=== PATIENT | female | born 1955 | race Caucasian/White ===

== ENCOUNTER 2016-07-02 13:25 | Emergency (ER) | payer MEDICARE ==
[~2016-07-02] VITALS: Ht 162.6 cm; Wt 50.0 kg
[~2016-07-02 13:25] MED LIST: BACT800T5 PO; IBUP-232 PO
[2016-07-02 13:44] VITALS: BP 103/73; PULSE 99; RESP 16; TEMP 98.5; O2SAT 98
--- NOTE | 2016-07-02 14:10 | PD ---
HPI Chief Complaint: leg injury Time Seen by Provider: 13:54 Travel History International Travel<30 days: No Contact w/Intl Traveler<30days: No Traveled to known affect area: No History of Present Illness HPI This patient complains of right knee pain. Approximately 12 hours ago during the middle of night she tripped and fell and landed on her right knee. Complains of right knee pain. She can ambulate but it's worse with ambulating. She has chronic difficulty with ambulating and has a rolling walker at home as well as a cane. 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) Endocrine: No Gastrointestinal Disorders: Yes (STATES HAS DIARRHEA SOMETIMES, NOT OFTEN) GERD: No Glaucoma: No Genitourinary: No Headaches: No Hepatitis: No Hiatal Hernia: No Hypertension: Yes (OCCAS.ASSOC WITH PAIN) Immune Disorder: No Implanted Vascular Access Dvce: Yes Kidney Stones: No Musculoskeletal: Yes Neurologic: No Psychiatric: No Reproductive: No Respiratory: No Immunizations Current: No Migraines: No Myocardial Infarction: No Renal Failure: No Seizures: No Sleep Apnea: No Thyroid Disease: No Ulcer: No Menopausal: Yes : 4 Para: 3 Miscarriage: 1 : 0 Ectopic : Yes Tubal Ligation: Yes Past Surgical History Abdominal Surgery: No AICD: No Appendectomy: No Arteriovenous Shunt: No Body Medical Devices: RIGHT HIP Cardiac Surgery: No Section: Yes Cholecystectomy: Yes (2008) Ear Surgery: Yes Endocrine Surgery: No Eye Surgery: No Genitourinary Surgery: No Gynecologic Surgery: Yes (C-SECT. X3, HYSTERECTOMY) Hysterectomy: Yes Insulin Pump: No Joint Replacement: Yes (R HIP) Neurologic Surgery: Yes (C5-6 REMOVED AND FUSED WITH NEW BONE) Pacemaker: No Thoracic Surgery: No Tonsillectomy: Yes (AND ADENOIDS) Other Surgery: Yes (NECK) Social History Alcohol Use: Yes (DAILY) Tobacco Use: Yes Substance Use: No Allergies-Medications (Allergen,Severity, Reaction): Coded Allergies: No Known Allergies (Verified , 07/02/16) Reported Meds & Prescriptions Reported Meds & Active Scripts Active No Active Prescriptions or Reported Medications Review of Systems General / Constitutional: No: Fever HENT: No: Headaches Cardiovascular: No: Chest Pain or Discomfort Physical Exam Narrative SKIN: Inspection shows no rash or ulcers. Palpation shows no induration or nodules. Psych: Normal mood and affect. Normal insight and judgment. Right leg: No erythema or bruising or open wound or specific bony tenderness. Data Data Last Documented VS Vital Signs Date Time Temp Pulse Resp B/P Pulse Ox O2 Delivery O2 Flow Rate FiO2 07/02/16 15:39 81 16 139/81 98 Room Air 07/02/16 13:44 98.5 Orders Knee, Complete (4vws) (07/02/16 ) MDM Medical Decision Making Medical Screen Exam Complete: Yes Emergency Medical Condition: Yes Medical Record Reviewed: Yes Differential Diagnosis Fracture, dislocation of patella, contusion Narrative Course I have reviewed the patient's electronic medical record. I reviewed her right knee x-rays which show no fracture or dislocation. Also visible is her hardware all the way from artificial hip down to distal femur and it looks well approximated Supportive care discussed and I expect her to get back to her normal baseline. Discussed ice and elevation and she has a walker to keep weight off it for a few days Diagnosis Primary Impression: Contusion of knee, left Additional Instructions: The patient was advised to follow up with their physician and return if they worsen. Med/Other Pt SpecificInfo: Other Scripts No Active Prescriptions or Reported Meds Disposition: 01 DISCHARGE HOME Condition: Stable Matthew Lemus MD Jul 02, 2016 14:10
[2016-07-02 15:39] VITALS: BP 139/81; PULSE 81; RESP 16; O2SAT 98
--- NOTE | 2016-07-02 16:00 | RADHPO ---
EXAM DATE/TIME: 07/02/2016 15:22 [facility] COMPARISON: KNEE RIGHT COMPLETE (4VWS), December 05, 2015, 14:59. INDICATIONS : Fell out of bed, right knee pain MEDICAL HISTORY : None. SURGICAL HISTORY : right hip, right femur ENCOUNTER: Initial ACUITY: 1 day PAIN SCORE: 10/10 LOCATION: Right knee FINDINGS: There is sideplate and screw fixation of the distal femur. Postoperative right hip replacement. Bones are osteopenic. No acute fracture identified. Findings similar to November 2015 CONCLUSION: 1. Postoperative changes of fixation of the right femur. No acute bony abnormalities. Blake Greenwood MD on July 02, 2016 at 15:57 Board Certified Radiologist. This report was verified electronically.
== END 2016-07-02 16:18 | disposition home or self-care (01) ==
LOC: PHED 13:25
DX: S80.01XA Contusion of right knee, initial encounter (principal); I10 Essential (primary) hypertension; Z72.0 Tobacco use; W18.09XA Striking against other object with subsequent fall, initial encounter; Y99.8 Other external cause status
CPT/HCPCS: 73564; 99283

== ENCOUNTER 2016-07-09 11:30 | Emergency (ER) | payer MEDICARE ==
[~2016-07-09] VITALS: Ht 162.6 cm; Wt 50.0 kg
[2016-07-09 11:43] VITALS: BP 109/80; PULSE 93; RESP 16; TEMP 98.6; O2SAT 99
--- NOTE | 2016-07-09 13:32 | RADHPO ---
EXAM DATE/TIME: 07/09/2016 12:42 [facility] COMPARISON: CT BRAIN W/O CONTRAST, September 06, 2015, 15:37. INDICATIONS : Fall from bed today. RADIATION DOSE: 56.86 CTDIvol (mGy) MEDICAL HISTORY : Hypertension. SURGICAL HISTORY : Fusion, cervical. Tonsillectomy.ear surgery ENCOUNTER: Initial ACUITY: 1 day PAIN SCALE: 3/10 LOCATION: Bilateral head TECHNIQUE: Multiple contiguous axial images were obtained of the head. Using automated exposure control and adj ustment of the mA and/or kV according to patient size, radiation dose was kept as low as reasonably a chievable to obtain optimal diagnostic quality images. FINDINGS: CEREBRUM: The ventricles are normal for age. No evidence of midline shift, mass lesion, hemorrhage or acute in farction. No extra-axial fluid collections are seen. POSTERIOR FOSSA: The cerebellum and brainstem are intact. The 4th ventricle is midline. The cerebellopontine angle i s unremarkable. EXTRACRANIAL: The visualized portion of the orbits is intact. SKULL: The calvaria is intact. No evidence of skull fracture. CONCLUSION: No acute intracranial findings. Parminder Cotto MD on July 09, 2016 at 13:30 Board Certified Radiologist. This report was verified electronically.
--- NOTE | 2016-07-09 13:36 | RADHPO ---
EXAM DATE/TIME: 07/09/2016 12:42 [facility] COMPARISON: No previous studies available for comparison. INDICATIONS : Fall from bed today. RADIATION DOSE: 24.65 CTDIvol (mGy) MEDICAL HISTORY : Hypertension. SURGICAL HISTORY : Fusion, cervical. Tonsillectomy.Hysterectomy. ENCOUNTER: Initial ACUITY: 1 day PAIN SCALE: 4/10 LOCATION: Bilateral neck TECHNIQUE: Volumetric scanning of the cervical spine was performed. Multiplanar reconstructions in the sagittal, coronal and oblique axial planes were performed. Using automated exposure control and adjustment o f the mA and/or kV according to patient size, radiation dose was kept as low as reasonably achievable to obtain optimal diagnostic quality images. FINDINGS: VERTEBRAE: Anterior fusion hardware C4 to C7. No evidence of fracture. Osseous bridging is seen between the C4 a nd C5 vertebral bodies as well as between the C5 and C6 and C6 and C7 vertebral bodies. ALIGNMENT: No evidence of subluxation. C2-C3: No evidence of focal disc protrusion. Central canal normal diameter. Neural foraminal diameters withi n normal limits. C3-C4: Broad-based discussed you by complex right-sided facet arthrosis. Central canal diameter within henry l limits. Mild right neural foraminal narrowing. C4-C5: Post surgical level. No evidence of focal disc protrusion. Central canal normal diameter. Neural fora nell diameters within normal limits. C5-C6: Post surgical level. No evidence of focal disc protrusion. Central canal normal diameter. Neural fora nell diameters within normal limits. C6-C7: Post surgical level. No evidence of focal disc protrusion. Central canal normal diameter. Mild left n eural foraminal narrowing. C7-T1: The bony spinal canal is normal in size. No evidence of disc bulge or herniation. The neural forami na are bilaterally patent. CONCLUSION: No evidence of fracture. Post surgical findings. Degenerative findings. Parminder Cotto MD on July 09, 2016 at 13:31 Board Certified Radiologist. This report was verified electronically.
--- NOTE | 2016-07-09 13:47 | RADHPO ---
EXAM DATE/TIME: 07/09/2016 12:57 [facility] COMPARISON: No previous studies available for comparison. INDICATIONS : Fall. Right hip pain. MEDICAL HISTORY : None. SURGICAL HISTORY : None. ORIF ENCOUNTER: Initial ACUITY: 1 day PAIN SCORE: 8/10 LOCATION: Right pelvis FINDINGS: 3 views of the pelvis and right hip. Bilateral hip prostheses in place. Alignment within normal limit s. Fracture deformity in the region of the greater trochanter shows evidence of advanced bone bridgin g. No evidence of acute fracture. CONCLUSION: 1. Bilateral hip prostheses. 2. Deformity proximal right femur indicating old fracture. 3. No evidence of acute fracture. Parminder Cotto MD on July 09, 2016 at 13:43 Board Certified Radiologist. This report was verified electronically.
--- NOTE | 2016-07-09 13:49 | RADHPO ---
EXAM DATE/TIME: 07/09/2016 13:02 [facility] COMPARISON: No previous studies available for comparison. INDICATIONS : Fall. MEDICAL HISTORY : None. SURGICAL HISTORY : None. ORIF ENCOUNTER: Initial ACUITY: 1 day PAIN SCORE: 6/10 LOCATION: Right lateral FINDINGS: 2 views of the right femur. Lateral internal fixation plate and multiple transfixing screws in place in the femoral shaft and distal femur. Hardware intact. No evidence of acute fracture. Bone callus in dicating old distal femoral shaft fracture noted. CONCLUSION: Evidence of old distal femoral shaft fracture status post ORIF. No acute fracture identified. Parminder Cotto MD on July 09, 2016 at 13:46 Board Certified Radiologist. This report was verified electronically.
--- NOTE | 2016-07-09 13:50 | RADHPO ---
EXAM DATE/TIME: 07/09/2016 13:03 [facility] COMPARISON: KNEE RIGHT COMPLETE (4VWS), July 02, 2016, 15:22. INDICATIONS : Fall. Right knee pain. MEDICAL HISTORY : None. SURGICAL HISTORY : None. ENCOUNTER: Initial ACUITY: 1 day PAIN SCORE: 7/10 LOCATION: Right lateral FINDINGS: 4 views right knee. Distal femoral hardware again seen and unchanged. Evidence of old distal femoral shaft fracture. No acute fracture identified. No evidence of joint effusion. No evidence of joint lee rowing. CONCLUSION: Old distal femoral shaft fracture status post ORIF. No evidence of acute fracture. Parminder Cotto MD on July 09, 2016 at 13:47 Board Certified Radiologist. This report was verified electronically.
--- NOTE | 2016-07-09 13:52 | RADHPO ---
EXAM DATE/TIME: 07/09/2016 13:08 [facility] COMPARISON: No previous studies available for comparison. INDICATIONS : Fall. Right lower leg pain. MEDICAL HISTORY : None. SURGICAL HISTORY : None. ENCOUNTER: Initial ACUITY: 1 day PAIN SCORE: 5/10 LOCATION: Right lateral FINDINGS: 2 views right tibia and fibula. Distal femoral hardware, distal tibial hardware, and distal fibula drake rdware are identified. Hardware intact. No evidence of acute fracture. CONCLUSION: Evidence of old distal femur, tibia, and fibula fractures status post ORIF. No acute fracture identif ied. Parminder Cotto MD on July 09, 2016 at 13:49 Board Certified Radiologist. This report was verified electronically.
--- NOTE | 2016-07-09 14:08 | PD ---
HPI Chief Complaint: Fall Time Seen by Provider: 11:50 Travel History International Travel<30 days: No Contact w/Intl Traveler<30days: No Traveled to known affect area: No History of Present Illness HPI Patient is a 60-year-old female who comes in after a fall today. She says in bed when her cat jumped on her and she fell out of the bed. She says she landed on her right leg. She has history of surgeries to that leg do to old fractures. She says she did hit the back of her head. She denies any loss of consciousness. She denies any dizziness, nausea, vomiting. She was here earlier in the week for a fall as well. Per her son, she has been unwilling to get out of head recently due to pain in her knee for previous fall. She does see Dr. Briceno, but has not been to him in a while due to an issue with payment. Her son says he has already taking care of this issue. She has not had any fever or chills. She denies any chest pain or shortness of breath. 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) Endocrine: No Gastrointestinal Disorders: Yes (STATES HAS DIARRHEA SOMETIMES, NOT OFTEN) GERD: No Glaucoma: No Genitourinary: No Headaches: No Hepatitis: No Hiatal Hernia: No Hypertension: Yes (OCCAS.ASSOC WITH PAIN) Immune Disorder: No Implanted Vascular Access Dvce: Yes Kidney Stones: No Medical other: Yes (H/O SPINAL MENINGITITIS X3, NEUROPATHY) Musculoskeletal: Yes Neurologic: No Psychiatric: No Reproductive: No Respiratory: No Immunizations Current: Yes Migraines: No Myocardial Infarction: No Renal Failure: No Seizures: No Sleep Apnea: No Thyroid Disease: No Ulcer: No Menopausal: Yes : 4 Para: 3 Miscarriage: 1 : 0 Ectopic : Yes Tubal Ligation: Yes Past Surgical History Abdominal Surgery: No AICD: No Appendectomy: No Arteriovenous Shunt: No Body Medical Devices: RIGHT HIP Cardiac Surgery: No Section: Yes Cholecystectomy: Yes (2008) Ear Surgery: Yes Endocrine Surgery: No Eye Surgery: No Genitourinary Surgery: No Gynecologic Surgery: Yes (C-SECT. X3, HYSTERECTOMY) Hysterectomy: Yes Insulin Pump: No Joint Replacement: Yes (R HIP) Neurologic Surgery: Yes (C5-6 REMOVED AND FUSED WITH NEW BONE) Pacemaker: No Thoracic Surgery: No Tonsillectomy: Yes (AND ADENOIDS) Other Surgery: Yes (NECK) Social History Alcohol Use: Yes (DAILY) Tobacco Use: Yes Substance Use: No Allergies-Medications (Allergen,Severity, Reaction): Coded Allergies: No Known Allergies (Verified , 07/09/16) Reported Meds & Prescriptions Reported Meds & Active Scripts Active No Active Prescriptions or Reported Medications Review of Systems Except as stated in HPI: all other systems reviewed are Neg General / Constitutional: No: Fever, Chills Eyes: No: Blurred Vision HENT: No: Headaches Cardiovascular: No: Chest Pain or Discomfort Respiratory: No: Shortness of Breath Gastrointestinal: No: Nausea, Vomiting Musculoskeletal: Positive: Pain Skin: No Rash, No Change in Pigmentation Neurologic: No: Weakness, Dizziness Physical Exam Narrative GENERAL: Awake and alert, in no acute distress. SKIN: Warm and dry. HEAD: Atraumatic. Normocephalic. EYES: Pupils equal and round. No scleral icterus. ENT: Mucous membranes pink and moist. NECK: Trachea midline. No JVD. CARDIOVASCULAR: Regular rate and rhythm. No murmur appreciated. RESPIRATORY: No accessory muscle use. Clear to auscultation. Breath sounds equal bilaterally. MUSCULOSKELETAL: No obvious deformities. No clubbing. No cyanosis. No edema. Flexion of right knee limited due to pain. Pedal pulses intact. NEUROLOGICAL: Awake and alert. No obvious cranial nerve deficits. Motor grossly within normal limits. Normal speech. PSYCHIATRIC: Appropriate mood and affect; insight and judgment normal. Data Data Last Documented VS Vital Signs Date Time Temp Pulse Resp B/P Pulse Ox O2 Delivery O2 Flow Rate FiO2 07/09/16 11:50 16 07/09/16 11:43 98.6 93 109/80 99 Orders Hip, Uni(Ap&Lat) W Ap Pelvis (07/09/16 ) Femur (Ap & Lat/2vws) (07/09/16 ) Knee, Complete (4vws) (07/09/16 ) Tibia/Fibula (Ap/Lat) (07/09/16 ) Ct Brain W/O Iv Contrast(Rout) (07/09/16 ) Ct Cerv Spine W/O Contrast (07/09/16 ) MDM Medical Decision Making Medical Screen Exam Complete: Yes Emergency Medical Condition: Yes Medical Record Reviewed: Yes Differential Diagnosis Hip fracture versus knee fracture versus ankle fracture versus muscle sprain versus deconditioning Narrative Course Patient is a 60-year-old female comes in after she fell out of bed. Exam shows pain to the right leg. CT of the head and C-spine performed show no acute abnormalities. X-ray of the pelvis, right hip, right femur, right knee, right tib-fib show no acute findings. I spoke with her and her son at length and explained she needs to follow-up with Dr. Briceno. I explained that they should see him about possible physical therapy to help her become stronger and better able to walk on her own. I encouraged the patient to communicate with her son when she needs something from him. The son is very willing to help his mother and will set up appointments with Dr. Briceno. Patient will be discharged home. Advised to return to the ED as needed for any worsening symptoms. Diagnosis Primary Impression: Fall Qualified Code: W19.XXXA - Fall, initial encounter Additional Impression: Leg pain Qualified Code: M79.604 - Pain of right lower extremity Patient Instructions: General Instructions, Leg Sprain (ED) Additional Instructions: Follow up with Dr. Briceno. Return to the ED as needed for any worsening symptoms. Take Tylenol or Ibuprofen as needed for pain. Scripts No Active Prescriptions or Reported Meds Disposition: 01 DISCHARGE HOME Condition: Stable Suzanne Alvarado MD Jul 09, 2016 14:08
[2016-07-09 14:27] VITALS: BP 129/80; PULSE 82; RESP 16; O2SAT 97
== END 2016-07-09 15:53 | disposition home or self-care (01) ==
LOC: PHED 11:30
DX: M79.604 Pain in right leg (principal); W06.XXXA Fall from bed, initial encounter
CPT/HCPCS: 70450; 72125; 73502; 73552; 73564; 73590

== ENCOUNTER 2018-01-01 16:40 | Inpatient (IN) ==
[2018-01-01 17:39] LABS: Baso % (Auto) 0.2 % (0.0-2.0); Eos # (Auto) 0.2 th/mm3 (0.0-0.4); Eos % (Auto) 1.8 % (0.0-4.0); Hematocrit 41.9 % (35.0-46.0); Hemoglobin 14.1 gm/dL (11.6-15.3); Lymph # (Auto) 1.6 th/mm3 (1.0-4.8); Mean Corpuscular HGB Conc 33.7 % (32.0-36.0); Mean Corpuscular Hemoglobin 33.2 pg (27.0-34.0); Mean Corpuscular Volume 98.6 fL (80.0-100.0); Mean Platelet Volume 7.7 fL (7.0-11.0); Mono # (Auto) 0.5 th/mm3 (0.0-0.9); Mono % (Auto) 5.2 % (0.0-8.0); Neut # (Auto) 6.9 th/mm3 (1.8-7.7); Neut % (Auto) 75.8 % (16.0-70.0); Platelet Count 313 th/mm3 (150-450); Red Blood Count 4.25 mil/mm3 (4.00-5.30); Red Cell Distribution Width 13.6 % (11.6-17.2); White Blood Count 9.2 th/mm3 (4.0-11.0)
[2018-01-01] MEDS ORDERED: Sod Chloride 0.9% Inj 1,000 ML IV.SIG ONE (17:46)
[2018-01-01 17:49] LABS: Chloride 103 meq/L (98-107); Potassium 3.5 meq/L (3.5-5.1); Sodium 135 meq/L (136-145)
[2018-01-01 17:52] LABS: Activated Partial Thrombo Time 26.8 sec (24.3-30.1); Albumin 3.2 g/dL (3.4-5.0); Anion Gap 8 meq/L (5-15); Calcium 9.1 mg/dL (8.5-10.1); Carbon Dioxide 24.4 meq/L (21.0-32.0); Glucose,Random 114 mg/dL (74-106); Prothrombin Time 9.8 sec (9.8-11.6)
[2018-01-01 17:53] LABS: Blood Urea Nitrogen 19 mg/dL (7-18)
[2018-01-01 17:55] LABS: Alanine Aminotransferase 12 U/L (10-53); Aspartate Aminotransferase 9 U/L (15-37)
[2018-01-01 17:56] LABS: Glomerular Filtration Rate 77 mL/min (>89)
[2018-01-01 17:57] LABS: Clarity,Urine Clear (Clear); Color,Urine Yellow (Yellw/Straw); Glucose,Urine (UA) Negative (Negative); Leukocyte Esterase,Urine Negative (Negative); Nitrite,Urine Negative (Negative)
[2018-01-01 17:57] LABS: Total Protein 7.8 g/dL (6.4-8.2)
[2018-01-01 17:58] LABS: Alkaline Phosphatase 90 U/L (45-117)
[2018-01-01 18:00] LABS: Creatine Kinase 54 U/L (26-192)
[2018-01-01 18:11] LABS: Bilirubin,Urine Negative (Negative)
[2018-01-01 18:12] LABS: Bacteria,Urine Few /hpf; RBC,Urine 0-3 /hpf (0-3); Squamous Epithelial Cell,Urine 0-5 /hpf (0-5)
--- NOTE | 2018-01-01 18:24 | XR ---
EXAM DATE: 01/01/2018 6:13 PM EDT AGE/SEX: 62 years / Female INDICATIONS: Left knee pain from fall. CLINICAL DATA: This is the patient's initial encounter. Patient reports that signs and symptoms have been present for 1 day and indicates a pain score of 3/10. MEDICAL/SURGICAL HISTORY: Non-responsive. Non-responsive. COMPARISON: [facility], KNEE LEFT COMPLETE (4VWS), 03/23/2011. . FINDINGS: Multiple views of the knee were obtained and demonstrate moderate to severe osteopenia. There is an a cute comminuted fracture deformity involving the medial tibial plateau with mild depression of portio ns of the plateau measuring up to 4 5 mm. The fracture lines are not well-defined. The proximal fibul a and distal femur are intact in appearance. The patella is intact as well. There is abnormal soft ti ssue density now noted in the suprapatella bursa region with lipohemarthrosis. CONCLUSION: 1. Osteopenia with comminuted fracture of the proximal medial tibial plateau with mild depression. 2. Lipohemarthrosis.. Electronically signed by: Yaw Chan MD 01/01/2018 6:23 PM EDT
--- NOTE | 2018-01-01 18:25 | XR ---
EXAM DATE: 01/01/2018 6:13 PM EDT AGE/SEX: 62 years / Female INDICATIONS: Fall, short of breath. CLINICAL DATA: This is the patient's initial encounter. Patient reports that signs and symptoms have been present for 1 day and indicates a pain score of 4/10. MEDICAL/SURGICAL HISTORY: Non-responsive. Non-responsive. COMPARISON: [facility], CHEST SINGLE AP, 09/06/2015. . FINDINGS: 2 AP portable semierect views of the chest were obtained and demonstrate hyperinflation of the lungs with no new infiltrates or effusions. The heart and mediastinal structures remain within normal limit s. There are atherosclerotic changes in the aorta. The bony thorax remains intact. There are multiple overlying electrocardiogram leads. The patient is status post lower cervical fusion with screw plate fixation device. CONCLUSION: No acute cardiopulmonary disease. Electronically signed by: Yaw Chan MD 01/01/2018 6:24 PM EDT
--- NOTE | 2018-01-01 18:26 | ED ---
HPI General Chief complaint: Fall Stated complaint: Back Pain Time Seen by Provider: 01/01/18 16:51 History of Present Illness HPI narrative: 62-year-old female here for evaluation generalized weakness, failure to thrive. Patient had a fall 5 days ago, she is on her back, obtained pain on her left knee and was able to ambulate after the fall but for the last 3 days she has been sitting on the couch, feeling weak, unable to get up to go to the bathroom, her son went to check on her and he saw that she had urinated and defecated on herself. Related Data Home Medications Medication Instructions Recorded Confirmed No Known Home Medications 01/01/18 01/01/18 Allergies Allergy/AdvReac Type Severity Reaction Status Date / Time No Known Allergies Allergy Unverified 01/01/18 16:52 Review of Systems ROS: all other systems reviewed are negative [facility] Family History Family History Other Osteoporosis Social History Social History Substance History: No History of Abuse Second Hand Smoke Exposure: Yes Smoking Status: Current some day smoker Tobacco Type: Cigarettes How Often Do You Have a Drink Containing Alcohol: 4 or more times a week Immunization History Tetanus Immunization: Unsure Hx Influenza Vaccine This Season: No Exam Narrative Exam Narrative: GENERAL: Alert oriented 3 no acute distress SKIN: Focused skin assessment warm/dry. HEAD: Atraumatic. Normocephalic. EYES: Pupils equal and round. No scleral icterus. No injection or drainage. ENT: No nasal bleeding or discharge. Mucous membranes pink and moist. NECK: Trachea midline. No JVD. CARDIOVASCULAR: Regular rate and rhythm. No murmur appreciated. RESPIRATORY: No accessory muscle use. Clear to auscultation. Breath sounds equal bilaterally. GASTROINTESTINAL: Abdomen soft, non-tender, nondistended. Hepatic and splenic margins not palpable. MUSCULOSKELETAL: Stage I decubitus ulcer with stasis and erythema of both buttocks, no open wounds, no obvious deformities. No clubbing. No cyanosis. No edema. NEUROLOGICAL: Awake and alert. No obvious cranial nerve deficits. Motor grossly within normal limits. Normal speech. PSYCHIATRIC: Appropriate mood and affect; insight and judgment normal. Course Initial Documented Vital Signs Temperature 98.1 F 01/01/18 16:52 Pulse Rate 96 H 01/01/18 16:52 Respiratory Rate 17 01/01/18 16:52 Blood Pressure 124/80 01/01/18 16:52 Pulse Oximetry 98 08/14/18 16:52 Last Documented Vital Signs Temperature 97.4 F L 01/03/18 07:56 Pulse Rate 100 H 01/03/18 07:56 Respiratory Rate 22 01/03/18 07:56 Blood Pressure 114/73 01/03/18 07:56 Pulse Oximetry 96 01/03/18 07:56 Medical Decision Making MDM Narrative Medical decision making narrative: 62-year-old female here for evaluation of failure to thrive after a fall 5 days ago, labs are within normal limits, x- rays shows medial plateau fracture of the left tibia, patient has stasis on her buttocks, stage I sacral ulcer, generalized weakness. I discussed with the son and bedside who is POA possibility of intermediate placement and it seems that the patient in the son are both agreeable for intermediate placement for either temporary rehab or permanent. Patient will be admitted for intermediate placement and social consult, spoke with Dr. Bone who accepted the case. Medical Screen Exam Complete: Yes Emergency Medical Condition: Yes Lab Data Result diagrams: 01/03/18 04:50 01/03/18 04:50 Lab Results 01/01/18 01/01/18 01/01/18 Range/Units 17:30 17:30 17:30 CBC w Diff Auto diff final WBC 9.2 (4.0-11.0) th/mm3 RBC 4.25 (4.00-5.30) mil/mm3 Hgb 14.1 (11.6-15.3) gm/dL Hct 41.9 (35.0-46.0) % MCV 98.6 (80.0-100.0) fL MCH 33.2 (27.0-34.0) pg MCHC 33.7 (32.0-36.0) % RDW 13.6 (11.6-17.2) % Plt Count 313 (150-450) th/mm3 MPV 7.7 (7.0-11.0) fL Neut % (Auto) 75.8 H (16.0-70.0) % Lymph % (Auto) 17.0 (9.0-44.0) % Pender % (Auto) 5.2 (0.0-8.0) % Eos % (Auto) 1.8 (0.0-4.0) % Baso % (Auto) 0.2 (0.0-2.0) % Neut # (Auto) 6.9 (1.8-7.7) th/mm3 Lymph # (Auto) 1.6 (1.0-4.8) th/mm3 Pender # (Auto) 0.5 (0.0-0.9) th/mm3 Eos # (Auto) 0.2 (0.0-0.4) th/mm3 Baso # (Auto) 0.0 (0.0-0.2) th/mm3 WBC Differential . Differential Comment . PT 9.8 (9.8-11.6) sec INR 1.0 Ratio APTT 26.8 (24.3-30.1) sec Sodium (136-145) meq/L Potassium (3.5-5.1) meq/L Chloride (98-107) meq/L Carbon Dioxide (21.0-32.0) meq/L Anion Gap (5-15) meq/L BUN (7-18) mg/dL Creatinine (0.50-1.00) mg/dL Estimated GFR (>89) mL/min Random Glucose (74-106) mg/dL Calcium (8.5-10.1) mg/dL Total Bilirubin (0.2-1.0) mg/dL AST (15-37) U/L ALT (10-53) U/L Alkaline Phosphatase (45-117) U/L Ammonia (11-32) mcmol/L Total Creatine Kinase (26-192) U/L Total Protein (6.4-8.2) g/dL Albumin (3.4-5.0) g/dL TSH 3.710 (0.358-3.740) uIU/mL Urine Color (Yellw/Straw) Urine Clarity (Clear) Urine pH (5.0-8.5) Ur Specific [place] (1.002-1.035) Urine Protein (Neg-Trace) mg/dL Urine Glucose (UA) (Negative) mg/dL Urine Ketones (Negative) mg/dL Urine Occult Blood (Negative) Urine Nitrate (Negative) Urine Bilirubin (Negative) Urine Urobilinogen (Less than 2) mg/dL Ur Leukocyte Esterase (Negative) Urine RBC (0-3) /hpf Urine WBC (0-5) /hpf Ur Squamous Epith Cells (0-5) /hpf Urine Bacteria (None) /hpf Micro UA Comment Urine Culture Comments 01/01/18 01/01/18 01/01/18 Range/Units 17:30 17:30 17:53 CBC w Diff WBC (4.0-11.0) th/mm3 RBC (4.00-5.30) mil/mm3 Hgb (11.6-15.3) gm/dL Hct (35.0-46.0) % MCV (80.0-100.0) fL MCH (27.0-34.0) pg MCHC (32.0-36.0) % RDW (11.6-17.2) % Plt Count (150-450) th/mm3 MPV (7.0-11.0) fL Neut % (Auto) (16.0-70.0) % Lymph % (Auto) (9.0-44.0) % Pender % (Auto) (0.0-8.0) % Eos % (Auto) (0.0-4.0) % Baso % (Auto) (0.0-2.0) % Neut # (Auto) (1.8-7.7) th/mm3 Lymph # (Auto) (1.0-4.8) th/mm3 Pender # (Auto) (0.0-0.9) th/mm3 Eos # (Auto) (0.0-0.4) th/mm3 Baso # (Auto) (0.0-0.2) th/mm3 WBC Differential Differential Comment PT (9.8-11.6) sec INR Ratio APTT (24.3-30.1) sec Sodium 135 L (136-145) meq/L Potassium 3.5 (3.5-5.1) meq/L Chloride 103 (98-107) meq/L Carbon Dioxide 24.4 (21.0-32.0) meq/L Anion Gap 8 (5-15) meq/L BUN 19 H (7-18) mg/dL Creatinine 0.76 (0.50-1.00) mg/dL Estimated GFR 77 L (>89) mL/min Random Glucose 114 H (74-106) mg/dL Calcium 9.1 (8.5-10.1) mg/dL Total Bilirubin 0.6 (0.2-1.0) mg/dL AST 9 L (15-37) U/L ALT 12 (10-53) U/L Alkaline Phosphatase 90 (45-117) U/L Ammonia Less than 10 L (11-32) mcmol/L Total Creatine Kinase 54 (26-192) U/L Total Protein 7.8 (6.4-8.2) g/dL Albumin 3.2 L (3.4-5.0) g/dL TSH (0.358-3.740) uIU/mL Urine Color Yellow (Yellw/Straw) Urine Clarity Clear (Clear) Urine pH 6.0 (5.0-8.5) Ur Specific [place] 1.020 (1.002-1.035) Urine Protein Trace (Neg-Trace) mg/dL Urine Glucose (UA) Negative (Negative) mg/dL Urine Ketones 40 H (Negative) mg/dL Urine Occult Blood Negative (Negative) Urine Nitrate Negative (Negative) Urine Bilirubin Negative (Negative) Urine Urobilinogen 2.0 H (Less than 2) mg/dL Ur Leukocyte Esterase Negative (Negative) Urine RBC 0-3 (0-3) /hpf Urine WBC 6-8 H (0-5) /hpf Ur Squamous Epith Cells 0-5 (0-5) /hpf Urine Bacteria Few H (None) /hpf Micro UA Comment Cath-culture ind Urine Culture Comments Cath-cult indicated 01/03/18 01/03/18 Range/Units 04:50 04:50 CBC w Diff WBC 5.0 (4.0-11.0) th/mm3 RBC 3.53 L (4.00-5.30) mil/mm3 Hgb 11.1 L D (11.6-15.3) gm/dL Hct 34.8 L (35.0-46.0) % MCV 98.5 (80.0-100.0) fL MCH 31.5 (27.0-34.0) pg MCHC 32.0 (32.0-36.0) % RDW 13.8 (11.6-17.2) % Plt Count 283 (150-450) th/mm3 MPV 8.9 (7.0-11.0) fL Neut % (Auto) (16.0-70.0) % Lymph % (Auto) (9.0-44.0) % Pender % (Auto) (0.0-8.0) % Eos % (Auto) (0.0-4.0) % Baso % (Auto) (0.0-2.0) % Neut # (Auto) (1.8-7.7) th/mm3 Lymph # (Auto) (1.0-4.8) th/mm3 Pender # (Auto) (0.0-0.9) th/mm3 Eos # (Auto) (0.0-0.4) th/mm3 Baso # (Auto) (0.0-0.2) th/mm3 WBC Differential Differential Comment PT (9.8-11.6) sec INR Ratio APTT (24.3-30.1) sec Sodium 142 (136-145) meq/L Potassium 3.3 L (3.5-5.1) meq/L Chloride 113 H D (98-107) meq/L Carbon Dioxide 22.6 (21.0-32.0) meq/L Anion Gap 6 (5-15) meq/L BUN 7 (7-18) mg/dL Creatinine 0.48 L (0.50-1.00) mg/dL Estimated GFR Greater than 89 (>89) mL/min Random Glucose 91 (74-106) mg/dL Calcium 7.7 L D (8.5-10.1) mg/dL Total Bilirubin (0.2-1.0) mg/dL AST (15-37) U/L ALT (10-53) U/L Alkaline Phosphatase (45-117) U/L Ammonia (11-32) mcmol/L Total Creatine Kinase (26-192) U/L Total Protein (6.4-8.2) g/dL Albumin (3.4-5.0) g/dL TSH (0.358-3.740) uIU/mL Urine Color (Yellw/Straw) Urine Clarity (Clear) Urine pH (5.0-8.5) Ur Specific [place] (1.002-1.035) Urine Protein (Neg-Trace) mg/dL Urine Glucose (UA) (Negative) mg/dL Urine Ketones (Negative) mg/dL Urine Occult Blood (Negative) Urine Nitrate (Negative) Urine Bilirubin (Negative) Urine Urobilinogen (Less than 2) mg/dL Ur Leukocyte Esterase (Negative) Urine RBC (0-3) /hpf Urine WBC (0-5) /hpf Ur Squamous Epith Cells (0-5) /hpf Urine Bacteria (None) /hpf Micro UA Comment Urine Culture Comments Imaging Data Radiologist's impression: Chest X-Ray 01/01/18 17:19 CONCLUSION: No acute cardiopulmonary disease. Knee X-Ray 01/01/18 17:19 CONCLUSION: 1. Osteopenia with comminuted fracture of the proximal medial tibial plateau with mild depression. 2. Lipohemarthrosis.. Head CT 01/01/18 18:36 CONCLUSION: 1. Stable negative noncontrast CT . Knee CT 01/02/18 00:00 CONCLUSION: 1. Schatzker type IV medial tibial plateau fracture, as above. Discharge Plan Discharge Disposition Patient Disposition: 30 Still Patient Discharge Condition Condition: Stable Discharge Details Diagnosis: Failure to thrive, UTI (urinary tract infection) Physicians Team ED Provider: Christopher Clement Primary Care Provider: Primary Care Physici,Odalys Attending Provider: Elton Bone Other Providers: Emory Salinas Discharge Interventions Interventions: ED Discharge Assessment Last Done: 01/01/18 23:19 Status ED Status: Left Department Discharge Information Discharge Date/Time: 01/01/18 22:00
[2018-01-01] MEDS ORDERED: Acetaminophen 325 MG Tablet PO PRN (18:55)
--- NOTE | 2018-01-01 19:38 | CT ---
EXAM DATE: 01/01/2018 7:34 PM EDT AGE/SEX: 62 years / Female INDICATIONS: Dizziness. CLINICAL DATA: This is the patient's initial encounter. Patient reports that signs and symptoms have been present for 1 day and indicates a pain score of 0/10. MEDICAL/SURGICAL HISTORY: Hypertension. Fusion, cervical. RADIATION DOSE: 47.31 CTDI (mGy) COMPARISON: [facility], CT BRAIN W/O CONTRAST, 07/09/2016. . TECHNIQUE: CT of the head without contrast. Using automated exposure control and adjustment of the mA and/or kV according to patient size, radiation dose was kept as low as reasonably achievable to ob tain optimal diagnostic quality images. DICOM format image data is available electronically for revi ew and comparison. FINDINGS: Cerebrum: The ventricles are normal for age. No evidence of midline shift, mass lesion, hemorrhage or acute infarction. No extraaxial fluid collections are seen. Posterior Fossa: The cerebellum and brainstem are intact. The 4th ventricle is midline. The cerebe llopontine angle is unremarkable. Extracranial: The visualized portion of the orbits is intact. Skull: The calvaria is intact. No evidence of skull fracture. CONCLUSION: 1. Stable negative noncontrast CT . Electronically signed by: Yaw Chan MD 01/01/2018 7:37 PM EDT
[2018-01-01] MEDS: Sod Chloride 0.9% Inj 1,000 ML IV.CONT SCH (21:06)
[2018-01-02] MEDS: Sod Chloride 0.9% Inj 1,000 ML IV.CONT SCH ×2 (08:06→17:14)
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
[2018-01-02] MEDS: Enoxaparin Inj 40 MG/0.4 ML Syringe SQ SCH (12:08)
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
[2018-01-02] MEDS ORDERED: Silver Sulfadiazine 1% Ceam 400 GM Jar TOPICAL SCH (15:00)
[2018-01-02] MEDS ORDERED: Lidocaine 5% Oint 37 GM Tube TOPICAL SCH (15:00)
--- NOTE | 2018-01-02 17:46 | CT ---
EXAM DATE: 01/02/2018 5:37 PM EDT AGE/SEX: 62 years / Female INDICATIONS: Fracture Left Knee CLINICAL DATA: This is the patient's initial encounter. Patient reports that signs and symptoms have been present for 2 days and indicates a pain score of 9/10. MEDICAL/SURGICAL HISTORY: None. Fusion, cervical. Tonsillectomy. RADIATION DOSE: 7.37 CTDI (mGy) COMPARISON: [facility], KNEE COMPLETE LEFT 4V, 01/01/2018. . TECHNIQUE: Multiple contiguous axial images were acquired using a multirow detector CT scanner witho ut contrast. Multiplanar reconstruction was performed in the sagittal and coronal planes. Using aut omated exposure control and adjustment of the mA and/or kV according to patient size, radiation dose was kept as low as reasonably achievable to obtain optimal diagnostic quality images. DICOM format i mage data is available electronically for review and comparison. FINDINGS: Bones: There is a Schatzker type IV medial tibial plateau fracture with minimal lateral displacement of the proximal fragment and slight depression. Remaining visualized osseous structures appear intac t. Femoral condyles appear intact. Patella is intact. Osseous structures are diffusely osteopenic. Joints: Small probable hemarthrosis. Soft Tissues: No soft tissue mass is seen. Other: No foreign bodies seen. Diffusely calcified inferior popliteal and proximal tibial arteries. CONCLUSION: 1. Schatzker type IV medial tibial plateau fracture, as above. Electronically signed by: Tim Moreno MD 01/02/2018 5:45 PM EDT
[2018-01-02] MEDS ORDERED: Butalbital/APAP/Caff 50/325/40 MG Tablet PO PRN (18:01)
[2018-01-02] MEDS ORDERED: oxyCODONE/Acetaminophen 10/325 Tablet PO ONE (20:02)
[2018-01-03] MEDS: Sod Chloride 0.9% Inj 1,000 ML IV.CONT SCH (02:54)
[2018-01-03 06:47] LABS: Hematocrit 34.8 % (35.0-46.0); Mean Corpuscular Hemoglobin 31.5 pg (27.0-34.0); Mean Corpuscular Volume 98.5 fL (80.0-100.0); Mean Platelet Volume 8.9 fL (7.0-11.0); Platelet Count 283 th/mm3 (150-450); Red Blood Count 3.53 mil/mm3 (4.00-5.30); Red Cell Distribution Width 13.8 % (11.6-17.2)
[2018-01-03 07:01] LABS: Hemoglobin 11.1 gm/dL (11.6-15.3)
[2018-01-03 07:08] LABS: Anion Gap 6 meq/L (5-15); Blood Urea Nitrogen 7 mg/dL (7-18); Calcium 7.7 mg/dL (8.5-10.1); Carbon Dioxide 22.6 meq/L (21.0-32.0); Chloride 113 meq/L (98-107); Glomerular Filtration Rate Greater Than 89 mL/min (>89); Glucose,Random 91 mg/dL (74-106); Potassium 3.3 meq/L (3.5-5.1); Sodium 142 meq/L (136-145)
[2018-01-03] MEDS: Enoxaparin Inj 40 MG/0.4 ML Syringe SQ SCH (08:32)
[2018-01-03] MEDS: Morphine Inj 4 MG/ML Vial IV.PUSH PRN ×3 (13:24→22:22)
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
--- NOTE | 2018-01-03 16:20 | P.PNIM ---
Subjective Interval history: 62-year-old female who had leaking urine which is aggravated her buttocks wounds. Her pain is better controlled on morphine. Physical Exam Vital signs: Vital Signs 01/02/18 20:00 01/03/18 00:00 01/03/18 07:56 Temperature 97.9 F 98 F 97.4 F L Pulse Rate 89 85 100 H Respiratory Rate 18 18 22 Blood Pressure 121/72 118/74 114/73 Pulse Oximetry 97 98 96 01/03/18 12:00 Temperature 97.0 F L Pulse Rate 79 Respiratory Rate 20 Blood Pressure 133/84 Pulse Oximetry 99 Intake & Output 01/02/18 01/03/18 01/03/18 18:59 06:59 18:59 Intake Total 2760 / 2760 1480 / 1480 1420 / 1420 Output Total 400 / 400 300 / 300 Balance 2360 / 2360 1180 / 1180 1420 / 1420 Weight 42 kg Intake: IV 2000 / 2000 1000 / 1000 700 / 700 NS Inj 1,000 ML @ 100 mls/hr IV 1900 / 1900 1000 / 1000 600 / 600 .CONT .Q10H [facility] Rx#:[id number] Rocephin Inj 1,000 MG In NS Inj 100 / 100 100 / 100 100 ML @ 200 mls/hr IV.SIG Q24H [facility] Rx#:[id number] Oral 760 / 760 480 / 480 720 / 720 Output: Urine 400 / 400 300 / 300 Other: # Incontinent Voids 3 # Bowel Movements 0 Narrative: GENERAL: AAOx3, in pain, thin, malnourished SKIN: Warm and dry. No rashes HEAD: Atruamtic, normocephalic. EYES: No scleral icterus. No injection or drainage. ENT: Moist mucous membranes, patent nares, no erythema of oropharynx. NECK: Supple, trachea midline. No JVD or lymphadenopathy. Normal thyroid. CARDIOVASCULAR: Regular rate and rhythm. No murmurs, gallops, or rubs. RESPIRATORY: Breath sounds clear equal bilaterally. No crackles or wheezes. No accessory muscle use. GASTROINTESTINAL: Abdomen soft, non-tender, nondistended, normal active bowel sounds MUSCULOSKELETAL: No cyanosis, or edema. Reduced range of motion of left lower extremity due to left knee fracture NEURO: CN II-XII grossly intact, no focal deficits, no slurring of speech - Urinary Catheter Management Straight Cath placed during this visit: yes, but has since been removed by the nurse Reason for continuing: Severe pressure ulcer/wound Insertion date: 01/03/18 Insertion time: 15:35 Removal date: 01/01/18 Removal time: 17:53 Results - Labs CBC & Chem 7: 01/03/18 04:50 01/03/18 04:50 Laboratory Results - last 24 hr 01/03/18 01/03/18 04:50 04:50 WBC 5.0 RBC 3.53 L Hgb 11.1 L D Hct 34.8 L MCV 98.5 MCH 31.5 MCHC 32.0 RDW 13.8 Plt Count 283 MPV 8.9 Sodium 142 Potassium 3.3 L Chloride 113 H D Carbon Dioxide 22.6 Anion Gap 6 BUN 7 Creatinine 0.48 L Estimated GFR Greater than 89 Random Glucose 91 Calcium 7.7 L D Microbiology 01/01/18 17:53 Catheterized Urine Urine Culture - Final Escherichia coli - Imaging Impressions Knee CT 01/02/18 00:00 CONCLUSION: 1. Schatzker type IV medial tibial plateau fracture, as above. Assessment and Plan - Plan Left tibial plateau fracture following fall Comminuted fracture of left tibial plateau with mild depression Orthopedics recommends strict immobilization of left knee with nonweightbearing status Further instructions on outpatient follow-up in 1-2 weeks No surgery at this time Appreciate orthopedics consult Urinary tract infection Patient sat on her couch incontinent of urine and feces for at least 3 days before being found by her son Continue Rocephin IV Follow sensitivities Bilateral buttock wounds Excoriation of skin related to sitting and still in CBCs for 3 days Continue with barrier creams Noguera placed due to leakage of urine on 2 wounds causing aggravation Mild dementia Patient is cognitively intact for decision-making, she does have some mild baseline dementia, so that exacerbated by poor nutrition status DVT prophylaxis Lovenox Discharge planning Patient walks with a cane due to disability of right leg, now has a left knee fracture She will likely need SNF rehab facility on discharge
[2018-01-04] MEDS: Morphine Inj 4 MG/ML Vial IV.PUSH PRN ×4 (02:40→22:25)
--- NOTE | 2018-01-04 06:44 | XR ---
EXAM DATE: 01/04/2018 6:30 AM EDT AGE/SEX: 62 years / Female INDICATIONS: Left hip pain post fall CLINICAL DATA: This is the patient's subsequent encounter. Patient reports that signs and symptoms h ave been present for 3 days and indicates a pain score of 5/10. MEDICAL/SURGICAL HISTORY: None. . Left hip arthroplasty. Right hip arthroplasty. ORIF right fem ur fracture. COMPARISON: No prior exams available for comparison. FINDINGS: Bilateral hip prostheses are in place. There is also a plate along the mid and distal aspect of the r ight femur. An acute fracture is not seen. The bones are osteopenic. CONCLUSION: No acute abnormality is seen. Electronically signed by: Arron Baez MD 01/04/2018 6:42 AM EDT
[2018-01-04] MEDS: Enoxaparin Inj 40 MG/0.4 ML Syringe SQ SCH (07:59)
--- NOTE | 2018-01-04 13:42 | P.PNIM ---
Subjective Interval history: Patient's main source of pain is from the excoriated wounds on her buttocks. She is feeling slightly better now that her but remains dry after receiving a urinary catheter. She does have left knee pain from the fracture of her tibial plateau, but this is not her main source of pain. Her son is working on rehab options. Physical Exam Vital signs: Vital Signs 01/03/18 16:00 01/03/18 20:00 01/03/18 22:43 Temperature 98.4 F 97.1 F L Pulse Rate 77 90 Respiratory Rate 22 20 16 Blood Pressure 115/69 108/75 Pulse Oximetry 98 96 01/04/18 00:00 01/04/18 03:23 01/04/18 08:00 Temperature 97.9 F 98.1 F Pulse Rate 83 84 Respiratory Rate 20 16 20 Blood Pressure 112/69 125/73 Pulse Oximetry 96 95 01/04/18 12:00 Temperature 98.2 F Pulse Rate 80 Respiratory Rate 20 Blood Pressure 135/82 Pulse Oximetry 98 Intake & Output 01/03/18 01/04/18 01/04/18 18:59 06:59 18:59 Intake Total 1660 / 1660 680 / 680 720 / 720 Output Total 750 / 750 1150 / 1150 2200 / 2200 Balance 910 / 910 -470 / -470 -1480 / -1480 Weight 42 kg Intake: IV 700 / 700 100 / 100 NS Inj 1,000 ML @ 100 mls/hr IV 600 / 600 .CONT .Q10H [facility] Rx#:[id number] Rocephin Inj 1,000 MG In NS Inj 100 / 100 100 / 100 100 ML @ 200 mls/hr IV.SIG Q24H [facility] Rx#:[id number] Oral 960 / 960 580 / 580 720 / 720 Output: Urine 200 / 200 1150 / 1150 2200 / 2200 Urine Amount (Catheter) 550 / 550 Indwelling Urethral Catheter 550 / 550 Narrative: GENERAL: AAOx3, in pain, thin, malnourished SKIN: Warm and dry. No rashes HEAD: Atruamtic, normocephalic. EYES: No scleral icterus. No injection or drainage. ENT: Moist mucous membranes, patent nares, no erythema of oropharynx. NECK: Supple, trachea midline. No JVD or lymphadenopathy. Normal thyroid. CARDIOVASCULAR: Regular rate and rhythm. No murmurs, gallops, or rubs. RESPIRATORY: Breath sounds clear equal bilaterally. No crackles or wheezes. No accessory muscle use. GASTROINTESTINAL: Abdomen soft, non-tender, nondistended, normal active bowel sounds MUSCULOSKELETAL: No cyanosis, or edema. Reduced range of motion of left lower extremity due to left knee fracture NEURO: CN II-XII grossly intact, no focal deficits, no slurring of speech - Urinary Catheter Management Straight Cath placed during this visit: yes, but has since been removed by the nurse Reason for continuing: Severe pressure ulcer/wound Insertion date: 01/03/18 Insertion time: 15:35 Removal date: 01/01/18 Removal time: 17:53 Indwelling Urethral Catheter Cath placed during this visit: no Reason for continuing: Severe pressure ulcer/wound Results - Labs CBC & Chem 7: 01/03/18 04:50 01/03/18 04:50 - Imaging Impressions Pelvis X-Ray 01/04/18 00:00 CONCLUSION: No acute abnormality is seen. Assessment and Plan - Plan Left tibial plateau fracture following fall Comminuted fracture of left tibial plateau with mild depression Orthopedics recommends immobilization of left knee with nonweightbearing status Further instructions on outpatient follow-up in 1-2 weeks No surgery at this time Appreciate orthopedics consult Urinary tract infection Patient sat on her couch incontinent of urine and feces for at least 3 days before being found by her son Culture grew out pansensitive E. coli Continue Rocephin IV while hospitalized Bilateral buttock wounds Excoriation of skin related to sitting and still in CBCs for 3 days Noguera placed due to leakage of urine on 2 wounds causing aggravation Continue with barrier creams Mild dementia Patient is cognitively intact for decision-making, she does have some mild baseline dementia, so that exacerbated by poor nutrition status DVT prophylaxis Lovenox Discharge planning Plan for SNF rehab facility on discharge
[2018-01-05] MEDS: Morphine Inj 4 MG/ML Vial IV.PUSH PRN ×3 (03:26→20:38)
[2018-01-05] MEDS: Enoxaparin Inj 40 MG/0.4 ML Syringe SQ SCH (09:53)
--- NOTE | 2018-01-05 16:21 | P.PNIM ---
Subjective Interval history: Patient has no complaints today, pain is well controlled with morphine periodically. She will need an oral option on discharge which will be added today, morphine changed for breakthrough. Physical Exam Vital signs: Vital Signs 01/04/18 16:55 01/04/18 20:00 01/05/18 00:00 Temperature 98.8 F 97.8 F 97.5 F L Pulse Rate 80 82 85 Respiratory Rate 18 Blood Pressure 124/69 121/72 125/71 Pulse Oximetry 96 96 96 01/05/18 08:00 01/05/18 12:00 01/05/18 15:39 Temperature 98.1 F 97.9 F 98.0 F Pulse Rate 82 88 81 Respiratory Rate 18 Blood Pressure 118/75 118/72 122/75 Pulse Oximetry 95 95 95 Intake & Output 01/04/18 01/05/18 01/05/18 18:59 06:59 18:59 Intake Total 1220 / 1220 1540 / 1540 Output Total 2200 / 2200 2950 / 2950 Balance -980 / -980 -1410 / -1410 Weight 42.2 kg Intake: IV 100 / 100 Rocephin Inj 1,000 MG In NS Inj 100 / 100 100 ML @ 200 mls/hr IV.SIG Q24H [facility] Rx#:[id number] Oral 1220 / 1220 1440 / 1440 Output: Urine 2200 / 2200 2950 / 2950 Narrative: GENERAL: AAOx3, comfortable, thin, malnourished SKIN: Warm and dry. No rashes HEAD: Atruamtic, normocephalic. EYES: No scleral icterus. No injection or drainage. ENT: Moist mucous membranes, patent nares, no erythema of oropharynx. NECK: Supple, trachea midline. No JVD or lymphadenopathy. Normal thyroid. CARDIOVASCULAR: Regular rate and rhythm. No murmurs, gallops, or rubs. RESPIRATORY: Breath sounds clear equal bilaterally. No crackles or wheezes. No accessory muscle use. GASTROINTESTINAL: Abdomen soft, non-tender, nondistended, normal active bowel sounds MUSCULOSKELETAL: No cyanosis, or edema. Reduced range of motion of left lower extremity due to left knee fracture NEURO: CN II-XII grossly intact, no focal deficits, no slurring of speech - Urinary Catheter Management Straight Cath placed during this visit: yes, but has since been removed by the nurse Reason for continuing: Severe pressure ulcer/wound Insertion date: 01/03/18 Insertion time: 15:35 Removal date: 01/01/18 Removal time: 17:53 Indwelling Urethral Catheter Cath placed during this visit: no Reason for continuing: Acute urinary retention Results - Labs CBC & Chem 7: 01/03/18 04:50 01/03/18 04:50 Assessment and Plan - Plan Left tibial plateau fracture following fall Comminuted fracture of left tibial plateau with mild depression Orthopedics recommends immobilization of left knee with nonweightbearing status Further instructions on outpatient follow-up in 1-2 weeks No surgery at this time Appreciate orthopedics consult Urinary tract infection Patient sat on her couch incontinent of urine and feces for at least 3 days before being found by her son Culture grew out pansensitive E. coli Continue Rocephin IV while hospitalized Bilateral buttock wounds Excoriation of skin related to sitting and still in CBCs for 3 days Noguera placed due to leakage of urine on 2 wounds causing aggravation Continue with barrier creams Mild dementia Patient is cognitively intact for decision-making, she does have some mild baseline dementia DVT prophylaxis Lovenox Discharge planning Plan for SNF rehab facility on discharge, son is near [place] in [facility]
[2018-01-06] MEDS: Morphine Inj 4 MG/ML Vial IV.PUSH PRN ×6 (05:41→23:41)
[2018-01-06] MEDS: Enoxaparin Inj 40 MG/0.4 ML Syringe SQ SCH (09:41)
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
[2018-01-07] MEDS: Morphine Inj 4 MG/ML Vial IV.PUSH PRN (05:34)
[2018-01-07 08:04] VITALS: RESP 18
[2018-01-07] MEDS: Enoxaparin Inj 40 MG/0.4 ML Syringe SQ SCH ×2 (09:12→09:14)
--- NOTE | 2018-01-07 10:08 | P.PN ---
Subjective Interval history: F/U LE injury. OOB to chair counselled re narcs Physical Exam Vital signs: Vital Signs 01/06/18 11:44 01/06/18 15:49 01/06/18 18:00 Temperature 97.2 F L 98.4 F Pulse Rate 87 86 Respiratory Rate 18 18 16 Blood Pressure 130/76 113/72 Pulse Oximetry 95 96 01/06/18 20:00 01/07/18 00:00 01/07/18 08:00 Temperature 98.3 F 97.8 F 97.9 F Pulse Rate 91 H 80 76 Respiratory Rate 18 Blood Pressure 109/67 121/76 126/65 Pulse Oximetry 95 96 95 Intake & Output 01/06/18 01/07/18 01/07/18 18:59 06:59 18:59 Intake Total 990 / 990 540 / 540 Output Total 1750 / 1750 1974 Balance -760 / -760 -1435 / -1435 Intake: IV 100 / 100 Rocephin Inj 1,000 MG In NS Inj 100 / 100 100 ML @ 200 mls/hr IV.SIG Q24H PAULY Rx#:[id number] Oral 990 / 990 440 / 440 Output: Urine 1750 / 1750 1974 Other: # Bowel Movements 0 Narrative: GENERAL: AAOx3, comfortable, thin, malnourished SKIN: Warm and dry. No rashes CARDIOVASCULAR: Regular rate and rhythm. No murmurs, gallops, or rubs. RESPIRATORY: Breath sounds clear equal bilaterally. No crackles or wheezes. No accessory muscle use. GASTROINTESTINAL: Abdomen soft, non-tender, nondistended, normal active bowel sounds MUSCULOSKELETAL: No cyanosis, or edema. Reduced range of motion of left lower extremity due to left knee fracture NEURO: CN II-XII grossly intact, no focal deficits, no slurring of speech - Urinary Catheter Management Straight Cath placed during this visit: yes, but has since been removed by the nurse Reason for continuing: Severe pressure ulcer/wound Insertion date: 01/03/18 Insertion time: 15:35 Removal date: 01/01/18 Removal time: 17:53 Indwelling Urethral Catheter Cath placed during this visit: no Reason for continuing: Acute urinary retention Results - Labs CBC & Chem 7: 01/03/18 04:50 01/03/18 04:50 - Imaging ITS Impressions Chest X-Ray 01/01/18 17:19 CONCLUSION: No acute cardiopulmonary disease. Knee X-Ray 01/01/18 17:19 CONCLUSION: 1. Osteopenia with comminuted fracture of the proximal medial tibial plateau with mild depression. 2. Lipohemarthrosis.. Head CT 01/01/18 18:36 CONCLUSION: 1. Stable negative noncontrast CT . Knee CT 01/02/18 00:00 CONCLUSION: 1. Schatzker type IV medial tibial plateau fracture, as above. Pelvis X-Ray 01/04/18 00:00 CONCLUSION: No acute abnormality is seen. - Procedures None Assessment and Plan - Plan Left tibial plateau fracture following fall Comminuted fracture of left tibial plateau with mild depression Orthopedics recommends immobilization of left knee with nonweightbearing status Further instructions on outpatient follow-up in 1-2 weeks No surgery at this time Appreciate orthopedics consult Urinary tract infection Patient sat on her couch incontinent of urine and feces for at least 3 days before being found by her son Culture grew out pansensitive E. coli Dc Rocephin already received enough Bilateral buttock wounds Continue with barrier creams DVT prophylaxis Lovenox Discharge Planning: Stable for SNF rehab facility on discharge, son is near [place] in [facility]
[2018-01-07 13:24] VITALS: O2SAT 96
[2018-01-07 15:40] VITALS: BP 126/75; PULSE 82; TEMP 97.9
== END 2018-01-07 17:20 ==
LOC: PHED 16:40 → PHEDA 18:36 → PH3 21:25
PROVIDERS: ADMIT Internal Medicine; ATTEND Internal Medicine